=== PATIENT | female | born 2000 | race Caucasian/White ===

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

== ENCOUNTER 2019-03-05 09:47 | Emergency (ER) | payer OTHER ==
[~2019-03-05] VITALS: Ht 160 cm; Wt 75.9 kg
[~2019-03-05 09:47] MED LIST changes: +ANUS2.5C2 TOP; +BENA25CA4 PO; +COLA100C5 PO; +IBUP-1114 PO; +MAPA500T2 PO; +OXYC1TAB23 PO
[2019-03-05] MEDS ORDERED: METR-135 PO (09:57)
[2019-03-05] MEDS ORDERED: NAPROXEN 250 MG TAB PO ONE (10:45)
--- NOTE | 2019-03-05 11:47 | REP ---
Chest x-ray: Two views. History: Left-sided chest pain. . Comparison study: No comparison study . Findings: The lungs are well inflated and free of infiltrate. The pleural angles are sharp. The heart size is normal. Pulmonary vasculature is not increased. No significant bony abnormality is seen. Impression: Negative chest x-ray. Electronically Signed by Dago Blair MD 03/05/2019 11:39 A
[2019-03-05] MEDS ORDERED: NAPR-837 PO (12:03)
[2019-03-05 12:09] VITALS: BP 128/86
--- NOTE | 2019-03-06 07:21 | ECGEPIP ---
[facility] - ED Test Date: 2019-03-05 Pat Name: KRISTIN ABBOTT Department: Room: - Gender: Female [employer]: ct : 2000 Requested By: JAGDISH OLSON PA-C Order Number: [id number] Reading MD: Brandon Huerta Measurements Intervals [place] Rate: 77 P: 53 WI: 150 QRS: 37 QRSD: 78 T: 27 QT: 340 QTc: 386 Interpretive Statements SINUS RHYTHM WITH SINUS ARRHYTHMIA BENIGN EARLY REPOLARIZATION NO PRIORS FOR COMPARISON Electronically Signed on 03-06-2019 7:20:57 EST by Brandon Huerta
== END 2019-03-05 12:08 | disposition home or self-care (01) ==
LOC: M ED 09:47
DX: R07.89 Other chest pain (principal); Z87.891 Personal history of nicotine dependence